=== PATIENT | male | born 1965 ===

== ENCOUNTER 2018-05-04 09:03 | Emergency (ER) | payer SELFPAY ==
[2018-05-04 09:10] VITALS: BMI 36.8
[2018-05-04 09:21] VITALS: O2SAT 98
--- NOTE | 2018-05-04 09:46 | ED PDOC ---
Lower Extremity Pain/Injury Time Seen by Provider: 05/04/18 09:17 Chief Complaint (Nursing): Lower Extremity Problem/Injury Chief Complaint (Provider): Right heel pain History Per: Patient History/Exam Limitations: no limitations Onset/Duration Of Symptoms: Days (x1 year), Worse Since (today) Current Symptoms Are (Timing): Still Present Additional Complaint(s): Luisito Rodriguez is a 53 year old male, with no significant past medical history, who presents to the emergency department complaining of a right heel pain onset for x1 year but worst today. Patient states he had an xray done here and has a scheduled appointment for it on Friday but came today due to worsening pain. Patient did not take any medications for pain and states it is exacerbated after standing for long periods of time. He denies any other medical complaints. PMD: None Past Medical History Reviewed: Historical Data, Nursing Documentation, Vital Signs Vital Signs: Last Vital Signs Temp 97.4 F L 05/04/18 09:08 Pulse 61 05/04/18 09:08 Resp BP 123/77 05/04/18 09:08 Pulse Ox 98 05/04/18 09:16 - Medical History PMH: No Chronic Diseases - Surgical History Surgical History: No Surg Hx - Family History Family History: States: Unknown Family Hx - Home Medications Home Medications: Ambulatory Orders Medication Instructions Recorded Naproxen [Naprosyn] 500 mg PO BID PRN #15 tablet 05/04/18 - Allergies Allergies/Adverse Reactions: Allergies Allergy/AdvReac Type Severity Reaction Status Date / Time No Known Allergies Allergy Verified 05/04/18 09:15 Review of Systems ROS Statement: Except As Marked, All Systems Reviewed And Found Negative Musculoskeletal: Positive for: Foot Pain (right heel) Physical Exam - Reviewed Nursing Documentation Reviewed: Yes Vital Signs Reviewed: Yes - Physical Exam Appears: Positive for: No Acute Distress Head Exam: Positive for: ATRAUMATIC, NORMAL INSPECTION, NORMOCEPHALIC Skin: Positive for: Normal Color, Warm, Dry Eye Exam: Positive for: Normal appearance Neck: Positive for: Painless ROM Extremity: Positive for: Normal ROM (lower extremities), Tenderness (to right heel region), Other (normal DP pulses and sensation intact). Negative for: Deformity, Swelling Neurologic/Psych: Positive for: Alert, Oriented. Negative for: Motor/Sensory Deficits - ECG O2 Sat by Pulse Oximetry: 98 (RA) Pulse Ox Interpretation: Normal Medical Decision Making Medical Decision Making: Time: 09:17 Initial Impression: Right heel pain Initial Plan: --Reevaluation X-ray done on 03/30, showed no active diseases ----- Scribe Attestation: Documented by Virgilio Dukes, acting as a scribe for Yeni Muhammad MD. Provider Scribe Attestation: All medical record entries made by the Scribe were at my direction and personally dictated by me. I have reviewed the chart and agree that the record accurately reflects my personal performance of the history, physical exam, medical decision making, and the department course for this patient. I have also personally directed, reviewed, and agree with the discharge instructions and disposition. Disposition - Clinical Impression Clinical Impression: Plantar fasciitis of right foot - Disposition Disposition: Routine/Home Disposition Time: 10:40 Condition: STABLE Additional Instructions: CONTINUAR TRATAMIENTO CON [facility]. Prescriptions: Naproxen [Naprosyn] 500 mg PO BID PRN #15 tablet PRN Reason: Pain, Moderate (4-7) Instructions: Heel Pain (Caused by Plantar Fasciitis), Plantar Fasciitis Exercises Forms: [employer] (Bulgarian) Print Language: MONGOLIAN
--- NOTE | 2018-05-04 10:35 | CP.PCM.CON ---
History of Present Illness - History of Present Illness History of Present Illness: Podiatry Consult Note for Dr. Abbasi: 53yo male patient, who denies any pertinent PMHx, who presents to the ED with right heel pain. He denies any trauma or inciting incidents to his right foot and states that the pain has been ongoing for over a year. He is seen in clinic where he is treated for the pain. Patient states that he has an appointment this upcoming Friday for the same pain, however he wanted to be seen sooner in the ED. The pain is worse in the morning and he takes OTC pain medication for the pain. He currently ambulates in sneakers, which help with the pain. Patient able to fully weight bear. He denies N/V/F/SOB/CP. Robbin Baptiste interpretor utilized Review of Systems - Review of Systems Review of Systems: As per [facility] Meds Allergies/Adverse Reactions: Allergies Allergy/AdvReac Type Severity Reaction Status Date / Time No Known Allergies Allergy Verified 05/04/18 09:15 Physical Exam - Constitutional Appears: Well, Non-toxic, No Acute Distress - Head Exam Head Exam: ATRAUMATIC, NORMOCEPHALIC - Extremities Exam Additional comments: RLE focused exam: Vascular: DP/PT 2/4, CFT <3 seconds to all 5 digits, no edema noted Ortho: Tenderness to palpation of right plantar medial tubercle. MMT 5/5 with dorsiflexion, inversion, eversion, and plantarflexion. No tenderness to posterior edge of lateral malleolus or medial malleolus. No tenderness to palpation of navicular or base of 5th metatarsal. Neuro: Gross and protective sensation intact Derm: No open lesions, no erythema, no cellulitis, no interdigital maceration, no clinical signs of infection - Neurological Exam Neurological exam: Alert, Oriented x3 - Psychiatric Exam Psychiatric exam: Normal Affect, Normal Mood Results - Vital Signs Recent Vital Signs: Last Vital Signs Temp 97.4 F L 05/04/18 09:08 Pulse 61 05/04/18 09:08 Resp BP 123/77 05/04/18 09:08 Pulse Ox 98 05/04/18 09:52 Assessment & Plan - Assessment and Plan (Free Text) Assessment: 53yo male patient, who denies any pertinent PMHx, seen an evaluated for right plantar fasciitis Plan: Patient seen and evaluated with all questions and concerns addressed Patient plan discussed in detail with Dr. Abbasi X-ray's from March 30 reviewed; No fracture, plantar calcaneal spurs noted Advised patient to take OTC pain medication Advised patient to follow RICE protocol and the importance of proper shoe gear Discussed with patient the opportunity for a future steroid injection to the heel if the pain persists and will re-assess when he presents in clinic F/U in clinic on Friday with existing appointment Thank you for the consult. - Date & Time Date: 05/04/18 Time: 10:43
[2018-05-04 11:13] VITALS: BP 120/70; PULSE 87; RESP 20; TEMP 98
== END 2018-05-04 11:11 | disposition home or self-care (01) ==
LOC: H.ER 09:03
DX: M72.2 Plantar fascial fibromatosis (principal)